=== PATIENT | male | born 1965 | race Caucasian/White ===

== ENCOUNTER 2020-03-22 06:36 | Observation (INO) | payer BC, SELFPAY ==
[2020-03-22] VITALS (12 sets, daily range): BP systolic 132–193; BP diastolic 81–121; PULSE 58–98; RESP 16–23; TEMP 36.6–37; O2SAT 95–99; BMI 41.6
--- NOTE | 2020-03-22 06:53 | ED_ITS ---
HPI - Neuro Symptoms/Deficit General: Chief Complaint: Weakness Stated Complaint: facial numbness and L hand numbness Time Seen by Provider: 03/22/20 06:52 Source: patient History of Present Illness: HPI Narrative: Patient is a pleasant 54-year-old male seen for left-sided paresthesias. He states that driving to work on Wednesday morning, 2 days ago, his left side of his face felt numb in his left arm and hand felt and he had severely diminished strength of the upper extremity. Coworkers noted that his face looked to be drooping on the left. Coworkers told him to go to the hospital, but he went home instead. He co ntacted his doctor's office yesterday, and the pharmacy benefit manager told him to go immediately to the emergency department. He went home instead. He states that he woke up this morning feeling much better, with increased strength in the left arm and increased mobility of the left side of the face, however he has residual numbness of the left hand and left side of the face. He decided to come to the emergency department because he felt a sudden onset of chest discomfort this morning, which she states felt like pressure and lasted roughly 5 minutes and extended up both the left and right side of his anterior neck. He denies evolution of neurologic symptoms today. He states that he is supposed to be on blood pressure medication, however he has not taken it for some time. He arrives with blood pressure of 193/121. He denies recent sickness, fever, cough, headache, visual disturbance, abdominal pain, nausea, vomiting, and states that he has no difficulty walking. Review of Systems General: Reports: 10 or more systems reviewed and unremarkable except in HPI and below [facility] ED PFSH: Medical History (Updated 03/22/20 @ 14:05 by Quinton Felix MD) Diabetes mellitus Hypertension Obesity Surgical History (Updated 03/22/20 @ 13:59 by Quinton Felix MD) History of cholecystectomy History of knee surgery Family History (Updated 03/22/20 @ 13:59 by Quinton Felix MD) Other CAD (coronary artery disease) Social History Smoking and tobacco status: never smoked Alcohol intake: current Alcohol intake frequency: holidays/special occasions only Alcohol type: beer NIH stroke score NIHSS: Level Of Consciousness - 1a: 0 Level Of Consciousness Questions - 1b: Both Correct Level Of Consciousness Commands - 1c: Both Correct Best Gaze - 2: Normal Visual Smiley - 3: No Visual Loss Facial Palsy - 4: Minor Paralysis Motor Arm Right - 5: No Drift Motor Arm Left - 5: Drift Motor Leg Right - 6: No Drift Motor Leg Left - 6: No Drift Limb Ataxia - 7: Absent Sensory - 8: Mild To Moderate Loss Best Language - 9: No Aphasia Dysarthia - 10: Normal Extinction And Inattention - 11: 0 Score: Total Score: 3 Physical Exam Const: COMMON NORMALS: no acute distress, patient oriented x3 and alert ORIENTATION/CONSCIOUSNESS: Yes oriented to person, Yes oriented to place and Yes oriented to time HENMT: COMMON NORMALS: normocephalic and atraumatic HEAD & SCALP: normocephalic and atraumatic Eye: COMMON NORMALS: Equal, round and reactive pupils present, EOMs intact bilaterally and no scleral icterus PUPIL: Yes Equal, round and reactive p upils present Neck/C-Spine: COMMON NORMALS: no meningeal signs Resp: COMMON NORMALS: normal respiratory effort and No retractions Cardio: COMMON NORMALS: regular rate, regular rhythm and No murmurs present (Cardio) RATE: regular rate RHYTHM: regular rhythm GI: COMMON NORMALS: Normal to inspection, nondistended, normoactive bowel sounds present, Soft to palpation and non-tender PALPATION: Yes Soft to palpation Neuro: COMMON NORMALS: patient oriented x3 SENSORIUM/ORIENTATION: Yes alert, Yes oriented to person, Yes oriented to place and Yes oriented to time MENINGEAL SIGNS: Yes no meningeal signs CRANIAL NERVES: Yes CN normal except as noted OTHER: NIH of 3, for facial numbness, facial droop, mild left arm pronator drift, altered sensation of the left arm and leg. Skin: COMMON NORMALS: no rashes or lesions noted GENERAL SKIN EXAM: no rashes or lesions noted Course Vital Signs: Vital signs: Vital Signs Temperature 98.6 F 03/22/20 17:00 Pulse Rate 65 03/22/20 17:00 Respiratory Rate 18 03/22/20 17:00 Blood Pressure 143/89 03/22/20 17:00 Pulse Oximetry 97 03/22/20 16:00 MDM - Neuro Symptoms/Deficit MDM Narrative: Medical decision making narrative: Patient seen for symptoms consistent with subacute stroke. NIH is 3. CT of the head shows no acute process. His left-sided symptoms seem to be improving with time. Blood pressure was well controlled with a single dose of IV labetalol. He does not appear to be compliant with his home medications. He will be admitted to the hospital service for further observation and care. Lab Data: Labs: Lab Results 03/22/20 03/22/20 03/22/20 Range/Units 07:10 07:10 07:10 WBC 6.6 (4.0-10.0) 10^3/ uL RBC 6.07 H (4.1-5.3) 10^6/u L Hgb 15.5 (11.7-16.6) g/dL Hct 48.2 (42.0-52.0) % MCV 79.4 L (80-94) fL MCH 25.5 L (28.0-34.0) pg MCHC 32.2 (30.0-36.0) g/dL RDW 13.2 (12.1-15.1) % Plt Count 222 (130-400) 10^3/c mm MPV 10.5 H (7.4-10.4) fL Neut % (Auto) 70.2 % Lymph % (Auto) 21.0 % Morgan % (Auto) 6.2 % Eos % (Auto) 1.4 % Baso % (Auto) 0.9 % Neut # (Auto) 4.61 (1.8-7.7) 10^3/u L Lymph # (Auto) 1.4 (0.8-4.8) 10^3/u L Morgan # (Auto) 0.4 (0.2-0.9) 10^3/u L Eos # (Auto) 0.1 (0.0-0.8) 10^3/u L Baso # (Auto) 0.1 (0.0-0.1) 10^3/u L Nucleated RBC % (a uto) 0 % Nucleated RBCs # 0.0 /100WBC PT 13.70 (12.1-14.9) SECO NDS INR 1.02 (0.8-1.2) APTT 22.9 L (23.9-36.7) SECO NDS Sodium 133 L (136-145) mmol/L Potassium 4.1 (3.5-5.1) mmol/L Chloride 100 (98-107) mmol/L Carbon Dioxide 21 L (22-29) mmol/L Anion Gap 16.1 (5-19) BUN 13 (6-20) mg/dL Creatinine 0.7 (0.7-1.2) mg/dL GFR Calculation 118.4 (90-130) mL/min Glucose 316 H (65-115) mg/dL POC Glucose (70-110) mg/dL Estimat Average Gl ucose Hemoglobin A1c (4.0-6.0) % Calculated Osmolal ity 288 (285-295) mOsm/k g Calcium 9.0 (8.5-10.5) mg/dL Total Bilirubin 0.3 (0.15-1.2) mg/dL AST 12 (0-40) U/L ALT 14 (0-41) U/L Alkaline Phosphata se 117 (40-130) IU/L Troponin T Baselin e (0-15) ng/L Total Protein 6.6 (6.6-8.7) g/dL Albumin 4.1 (3.5-5.2) g/dL Globulin 2.5 (1.3-4.6) g/dL TSH (0.27-4.20) uIU/ mL 03/22/20 03/22/20 03/22/20 Range/Units 07:10 07:10 07:10 WBC (4.0-10.0) 10^3/ uL RBC (4.1-5.3) 10^6/u L Hgb (11.7-16.6) g/dL Hct (42.0-52.0) % MCV (80-94) fL MCH (28.0-34.0) pg MCHC (30.0-36.0) g/dL RDW (12.1-15.1) % Plt Count (130-400) 10^3/c mm MPV (7.4-10.4) fL Neut % (Auto) % Lymph % (Auto) % Morgan % (Auto) % Eos % (Auto) % Baso % (Auto) % Neut # (Auto) (1.8-7.7) 10^3/u L Lymph # (Auto) (0.8-4.8) 10^3/u L Morgan # (Auto) (0.2-0.9) 10^3/u L Eos # (Auto) (0.0-0.8) 10^3/u L Baso # (Auto) (0.0-0.1) 10^3/u L Nucleated RBC % (a uto) % Nucleated RBCs # /100WBC PT (12.1-14.9) SECO NDS INR (0.8-1.2) APTT (23.9-36.7) SECO NDS Sodium (136-145) mmol/L Potassium (3.5-5.1) mmol/L Chloride (98-107) mmol/L Carbon Dioxide (22-29) mmol/L Anion Gap (5-19) BUN (6-20) mg/dL Creatinine (0.7-1.2) mg/dL GFR Calculation (90-130) mL/min Glucose (65-115) mg/dL POC Glucose (70-110) mg/dL Estimat Average Gl ucose 283 Hemoglobin A1c 11.5 H (4.0-6.0) % Calculated Osmolal ity (285-295) mOsm/k g Calcium (8.5-10.5) mg/dL Total Bilirubin (0.15-1.2) mg/dL AST (0-40) U/L ALT (0-41) U/L Alkaline Phosphata se (40-130) IU/L Troponin T Baselin e 6 (0-15) ng/L Total Protein (6.6-8.7) g/dL Albumin (3.5-5.2) g/dL Globulin (1.3-4.6) g/dL TSH 0.91 (0.27-4.20) uIU/ mL 03/22/20 Range/Units 07:25 WBC (4.0-10.0) 10^3/ uL RBC (4.1-5.3) 10^6/u L Hgb (11.7-16.6) g/dL Hct (42.0-52.0) % MCV (80-94) fL MCH (28.0-34.0) pg MCHC (30.0-36.0) g/dL RDW (12.1-15.1) % Plt Count (130-400) 10^3/c mm MPV (7.4-10.4) fL Neut % (Auto) % Lymph % (Auto) % Morgan % (Auto) % Eos % (Auto) % Baso % (Auto) % Neut # (Auto) (1.8-7.7) 10^3/u L Lymph # (Auto) (0.8-4.8) 10^3/u L Morgan # (Auto) (0.2-0.9) 10^3/u L Eos # (Auto) (0.0-0.8) 10^3/u L Baso # (Auto) (0.0-0.1) 10^3/u L Nucleated RBC % (a uto) % Nucleated RBCs # /100WBC PT (12.1-14.9) SECO NDS INR (0.8-1.2) APTT (23.9-36.7) SECO NDS Sodium (136-145) mmol/L Potassium (3.5-5.1) mmol/L Chloride (98-107) mmol/L Carbon Dioxide (22-29) mmol/L Anion Gap (5-19) BUN (6-20) mg/dL Creatinine (0.7-1.2) mg/dL GFR Calculation (90-130) mL/min Glucose (65-115) mg/dL POC Glucose 302 (70-110) mg/dL Estimat Average Gl ucose Hemoglobin A1c (4.0-6.0) % Calculated Osmolal ity (285-295) mOsm/k g Calcium (8.5-10.5) mg/dL Total Bilirubin (0.15-1.2) mg/dL AST (0-40) U/L ALT (0-41) U/L Alkaline Phosphata se (40-130) IU/L Troponin T Baselin e (0-15) ng/L Total Protein (6.6-8.7) g/dL Albumin (3.5-5.2) g/dL Globulin (1.3-4.6) g/dL TSH (0.27-4.20) uIU/ mL EKG Data^: EKG 1: EKG interpretation date: 03/22/20 EKG interpretation time: 06:48 Interpretation: Normal sinus rhythm, rate of 84, no ST elevation or depression, intervals within normal limits. Mild motion artifact secondary to patient motion. Discharge Plan Discharge Patient Disposition: Admitted As Inpatient Admit Provider: Quinton Felix Coding Level of Care Code ED Manager Data Warehousing for Chg Fwd Exam Comprehensive
--- NOTE | 2020-03-22 07:06 | XR_ITS ---
WS: [id number] PORTABLE CHEST HISTORY: chest pain COMPARISON: None available. Lungs are clear and well expanded. No pleural effusion or pneumothorax. Cardiac size: Normal. Mediastinum/Aorta: Normal mediastinum. No osseous abnormality seen. XR/XR chest 1V portable [id number] IMPRESSION: Unremarkable portable chest.
--- NOTE | 2020-03-22 07:06 | CT_ITS ---
WS: [id number] CT angio headneck* [id number] REASON FOR EXAM: subacute stroke symptoms TECHNIQUE: Coronal and sagittal 2-D and MIP reformations. After the intravenous administration of con trast multiple thin section axial images were obtained in the arterial phase from the aortic arch to the top of the skull. Coronal and sagittal MIP reconstructions were obtained to demonstrate the aorti c arch and great vessels and the carotid and vertebral cervical and intracranial blood flow. IV CONTRAST ADMINISTERED: 95 mL of Omnipaque 350. TOTAL EXAM DLP: 2636.[address] scans at [facility] use at least one of these dose optimization techniques: automat ed exposure control; mA and/or kV adjustment per patient size (includes targeted exams where dose is matched to clinical indication); or iterative reconstruction. FINDINGS: ARCH AND GREAT VESSELS: No significant stenosis in the origin of the great vessels from the aortic arch. Origins of the right common carotid and vertebral arteries are unremarkable. The cervical portions of the common carotid arteries are normal. There is minimal plaque in the origi n of the internal carotid arteries. Internal carotid arteries are normal to the base of the skull. The cervical vertebral arteries are normal to the base of the skull. The skull base internal carotid and vertebral arteries are normal. INTRACRANIAL circulation: The terminus is normal bilaterally. The middle cerebral arterial circulations are normal. The anterior cerebral arterial circulations are normal. The basilar artery and basilar artery tip are normal. The superior cerebellar and the posterior cereb ral artery circulations are normal. CT/CT angio headneck* [id number] IMPRESSION: No significant vascular abnormality: No stenosis, clot, aneurysm, or arterial venous malformation is identified. Minimal calcified plaque in the origins of the internal carotid arteries.
--- NOTE | 2020-03-22 07:06 | CT_ITS ---
WS: [id number] CT head wo con* [id number] REASON FOR EXAM: Symptoms of Acute Stroke IV CONTRAST ADMINISTERED: Noncontrast TOTAL EXAM DLP: 898.[address] scans at [facility] use at least one of these dose optimization techniques: automat ed exposure control; mA and/or kV adjustment per patient size (includes targeted exams where dose is matched to clinical indication); or iterative reconstruction. FINDINGS: There is no midline shift or other significant mass effect. There are no findings of intracranial hemorrhage and no extra-axial fluid collection. There is no focal brain parenchymal abnormality, specifically no findings of acute ischemia. No significant atrophy. CT/CT head wo con* [id number] IMPRESSION: No acute intracranial abnormality.
--- NOTE | 2020-03-22 07:06 | ECG_ITS ---
[facility] Test Date: 2020-03-22 Pat Name: Carlos Ibanez Department: Room: Gender: Male Radio Journalist: : 1965 Requested By: Jaleel Tran Order Number: [id number] Jairo MD: Arnel Perez M.D. Measurements Intervals [place] Rate: 84 P: 50 [place]: 148 QRS: 35 QRSD: 93 T: 26 QT: 344 QTc: 409 Interpretive Statements SINUS RHYTHM NONSPECIFIC T-WAVE ABNORMALITY INTERPRETATION BASED ON A DEFAULT AGE OF 40 YEARS No previous ECG available for comparison Electronically Signed On 03-22-2020 18:33:39 UTILITIES GROUND WORKER by Arnel Perez M.D. [id number]
[2020-03-22 07:35] LABS: Glucose Point of Care 302 mg/dL (70-110)
[2020-03-22] MEDS: labetalol 5 mg/mL SDV 20mL 10 MG IV (07:38)
[2020-03-22 07:39] LABS: Basophils # 0.1 10^3/uL (0.0-0.1); Basophils % 0.9 %; Eosinophils # 0.1 10^3/uL (0.0-0.8); Eosinophils % 1.4 %; Hematocrit 48.2 % (42.0-52.0); Hemoglobin 15.5 g/dL (11.7-16.6); Lymphocytes # 1.4 10^3/uL (0.8-4.8); Mean Corpuscular HGB Conc 32.2 g/dL (30.0-36.0); Mean Corpuscular Hemoglobin 25.5 pg (28.0-34.0); Mean Corpuscular Volume 79.4 fL (80-94); Mean Platelet Volume 10.5 fL (7.4-10.4); Monocytes # 0.4 10^3/uL (0.2-0.9); Monocytes % 6.2 %; Neutrophils # 4.61 10^3/uL (1.8-7.7); Neutrophils % 70.2 %; Nucleated Red Blood Cells % 0 %; Platelet Count 222 10^3/cmm (130-400); Red Blood Count 6.07 10^6/uL (4.1-5.3); Red Cell Distribution Width 13.2 % (12.1-15.1); White Blood Count 6.6 10^3/uL (4.0-10.0)
[2020-03-22 07:53] LABS: INR 1.02 (0.8-1.2)
[2020-03-22 07:54] LABS: Partial Thromboplastin Time 22.9 SECONDS (23.9-36.7)
[2020-03-22 07:58] LABS: Alanine Aminotransferase 14 U/L (0-41); Albumin Level 4.1 g/dL (3.5-5.2); Alkaline Phosphatase 117 IU/L (40-130); Anion Gap 16.1 (5-19); Aspartate Amino Transferase 12 U/L (0-40); Blood Urea Nitrogen 13 mg/dL (6-20); Carbon Dioxide 21 mmol/L (22-29); Chloride 100 mmol/L (98-107); Globulin 2.5 g/dL (1.3-4.6); Glomerular Filtration Rate 118.4 mL/min (90-130); Glucose 316 mg/dL (65-115); Osmolality Calculated 288 mOsm/kg (285-295); Potassium 4.1 mmol/L (3.5-5.1); Sodium 133 mmol/L (136-145); Total Bilirubin 0.3 mg/dL (0.15-1.2); Total Protein 6.6 g/dL (6.6-8.7)
[2020-03-22] MEDS: iohexol 350 mg/mL 100 mL Btl IV (08:03)
[2020-03-22] MEDS: atorvastatin 40 mg Tablet PO (09:21)
[2020-03-22 09:47] LABS: Troponin(5th) Baseline 6 ng/L (0-15)
[2020-03-22 09:49] LABS: Troponin 5 2HR Delta 0 ABS# (0-10)
--- NOTE | 2020-03-22 10:36 | ECG_ITS ---
[facility] Test Date: 2020-03-22 Pat Name: Carlos Ibanez Department: Room: 260 Gender: Male Insurance Underwriting Assistant: : 1965 Requested By: Jaleel Tran Order Number: [id number] Jairo MD: Arnel Perez M.D. Measurements Intervals [place] Rate: 65 P: 23 [place]: 153 QRS: 34 QRSD: 101 T: 35 QT: 390 QTc: 408 Interpretive Statements SINUS RHYTHM NONSPECIFIC T-WAVE ABNORMALITY Compared to ECG 03/22/2020 06:47:53 No significant changes Electronically Signed On 03-22-2020 18:40:03 SALT GRINDER by Arnel Perez M.D. [id number] f
--- NOTE | 2020-03-22 11:17 | PM.HP ---
Providers/Chief Complaint Admitting Physician: Quinton Felix MD Primary Care Provider: Steffen Cabrera MD Chief Complaint: facial numbness and L hand numbness History of Present Illness Carlos Ibanez is a 54 year old male who presents with history of some facial numbness, and left arm numbness he noticed Wednesday around 11 PM. He reports the left hand, seem to get weaker after that, and he had difficulty steering with it. He reports it has been slowly improving, and just feels a little tight currently along with his face. He reports no slurred speech. Coworkers thought at the time when it was its worst he had some drooping of his left face. Today he had some upper chest radiating to his neck discomfort that was dull in nature while driving, and felt lightheaded around 5 AM. This lasted only a few minutes. No nausea or vomiting. He reports he has had chest discomfort on and off in the past for the last 5 to 6 years. He denies any reliable exertional chest discomfort. He reports no prior history of stroke. He has had no headache, nausea, vomiting. He has had no blood in his stools, or black or tarry stools. He does take ibuprofen, 2 to 6/day. He denies any documented prior history of stroke, or heart disease. No history of Covid, or exposure to it. No significant cough. NIH score was 3 in the emergency department. Patient reports he has diabetes and hypertension but stopped all medications related to this quite some time ago. Review of Systems General: Reports: 10 or more systems reviewed and unremarkable except in HPI and below Const: Denies: fever(s) Eyes: Denies: change in vision ENMT: Denies: throat pain Card: Reports: chest pain; Denies: edema Resp: Denies: dyspnea GI: Denies: abdominal pain, nausea or vomiting : Denies: flank pain Musc: Reports: neck pain Skin/Breast: Denies: rash Neuro: Reports: numbness in extremities and weakness in extremities; Denies: headache(s) Psych: Denies: anxiety Endo: Denies: polyuria Cristhian/Lymph: Denies: easy bruising All/Imm: Denies: urticaria Medications/Allergies Home Medications Medication Instructions Recorded Confirmed Last Taken Type No Known Home Medications 03/22/20 03/22/20 Unknown History Allergies Allergy/AdvReac Type Severity Reaction Status Date / Time No Known Allergies Allergy Unverified 03/22/20 09:07 PFSH Acute PFSH: Medical History (Updated 03/22/20 @ 14:05 by Quinton Felix MD) Diabetes mellitus Hypertension Obesity Surgical History (Updated 03/22/20 @ 13:59 by Quinton Felix MD) History of cholecystectomy History of knee surgery Family History (Updated 03/22/20 @ 13:59 by Quinton Felix MD) Other CAD (coronary artery disease) Social History Smoking and tobacco status: never smoked Alcohol intake: current Alcohol intake frequency: holidays/special occasions only Alcohol type: beer Vitals/I&O/Wt Last Vital Signs Temp 98.1 F 03/22/20 06:42 Pulse 88 03/22/20 10:01 Resp 23 H 03/22/20 10:01 BP 143/93 03/22/20 10:01 Pulse Ox 98 03/22/20 10:01 Weight last 48 hrs Weight 127.913 kg Physical Exam Narrative: EXAM NARRATIVE: General exam is a white male, in no apparent distress now denying any chest or neck discomfort. He reports it feels slightly tight in his left face and left arm. HEENT: Pupils equally round. Oropharynx clear. Neck is supple no lymphadenopathy or thyromegaly Cardiovascular regular rate and rhythm without murmur, no S3 or S4 Lungs clear no wheezing or crackles Abdomen is soft obese nontender with positive bowel sounds. No obvious organomegaly. Scarring is noted around his right upper quadrant was deferred Extremities no cyanosis clubbing or edema, cap refill brisk Skin no rash Neuro question mild nasolabial flattening left. Slight decreased strength left upper extremity. No drift. No other abnormalities noted. Data : 03/22/20 07:10 03/22/20 07:10 Other data: LFTs are normal Troponin is 6 and 120-minute troponin is 6 CTA head and neck demonstrate no flow-limiting stenosis, minimal plaque origin carotid arteries Head CT noncontrast negative Chest x-ray visualized by me no infiltrate. EKG demonstrates normal sinus rhythm, some baseline artifact, normal axis, nonspecific ST-T wave flattening V5 and 6 A&P Assessment and plan (1) CVA (cerebral vascular accident): Observation Plavix, aspirin Initiate statin, high intensity Check lipid profile tomorrow At this point does not appear to need physical therapy Check echocardiogram MRI of head tomorrow if able without contrast Status: Acute (2) Chest pain: Somewhat atypical chest pain Check echocardiogram Troponin and EKG series Considering risk factors may warrant outpatient nuclear stress testing by Babatunde boyd Status: Acute (3) Diabetes mellitus: Check hemoglobin A1c Initiate sliding scale insulin Will need recommendations for treatment of medication for control on discharge Check TSH as well Status: Inactive (4) Hypertension: Permissive hypertension currently and if no worsening of symptoms start antihypertensives tomorrow as symptoms started March 20 Status: Inactive Additional A&P Information Obesity Full code DVT prophylaxis with Lovenox Attestations Medical Necessity Statement*: Will need less than 2 midnight stay for evaluation of stroke, chest discomfort Time Spent in Patient Care: Greater than 35 minutes Coding Level of Care Code Acute Truck Car And Bus Cleaner for g Fwd Diagnoses CVA (cerebral vascular accident) I63.9 Chest pain R07.9 Diabetes mellitus E11.9 Hypertension I10
--- NOTE | 2020-03-22 11:19 | USCV_ITS ---
Carlos Ibanez Age: 54 Gender: M : 1965 Exam Date: 03/22/2020 14:18 Ordering Phys: Quinton Felix MD Technologist: Lucero Coombs Exam Location: [facility] [place] Indication: ARM NUMBNESS BP: 143 / 87 HR: 72 Rhythm: Sinus Technical Quality: Very technically difficult study MEASUREMENTS (Male / Female) Normal Values 2D ECHO LV Diastolic Diameter PLAX 3.6 cm 4.2 - 5.9 / 3.9 - 5.3 cm LV Systolic Diameter PLAX 3.0 cm IVS Diastolic Thickness 1.5 cm 0.6 - 1.0 / 0.6 - 0.9 cm IVS Systolic Thickness 1.8 cm LVPW Diastolic Thickness 1.3 cm 0.6 - 1.0 / 0.6 - 0.9 cm LVPW Systolic Thickness 1.6 cm LVOT Diameter 2.0 cm LV Ejection Fraction 2D Teich 18.8 % LV Ejection Fraction MOD 2C 73.0 % LV Ejection Fraction 2C AL 74.7 % LA Diameter 4.0 cm LA Width 3.9 cm LA Height 5.0 cm RA Width 3.7 cm RA Height 3.5 cm Aorta at Sinotubular Diameter 3.2 cm M-MODE LV Diastolic Diameter MM 3.6 cm 4.2 - 5.9 / 3.9 - 5.3 cm LV Systolic Diameter MM 2.8 cm LV Ejection Fraction MM Teich 48.2 % IVS Diastolic Thickness MM 1.3 cm 0.6 - 1.0 / 0.6 - 0.9 cm IVS Systolic Thickness MM 1.9 cm LVPW Diastolic Thickness MM 1.8 cm 0.6 - 1.0 / 0.6 - 0.9 cm LVPW Systolic Thickness MM 1.7 cm RV Diastolic Diameter MM 2.2 cm Aortic Annulus Diameter 3.6 cm LA Ao Ratio MM 1.1 MV E Point Septal Separation 0.4 cm DOPPLER AV Peak Velocity 156.0 cm/s LVOT Peak Velocity 109.0 cm/s AV Area Cont Eq vti 2.7 cm squared AV Area Cont Eq pk 2.3 cm squared MV Area PHT 6.5 cm squared Mitral E to A Ratio 1.0 MV E' Velocity 51.5 cm/s Mitral E to MV E' Ratio 10.6 Mitral E to LV E' Lateral Ratio 11.3 Mitral E to LV E' Septal Ratio 9.9 TR Peak Velocity 115.7 cm/s TR Peak Gradient 5.4 mmHg TR Mean Velocity 74.9 cm/s TR Mean Gradient 2.7 mmHg TR Velocity Time Integral 22.8 cm TV Peak E Velocity 56.0 cm/s Right Atrial Pressure 3.0 mmHg Pulmonary Artery Systolic Pressu 8.4 mmHg PV Peak Velocity 105.0 cm/s RV Acceleration Time 0.1 s RV Ejection Time 0.3 s RV AcT/ET 0.4 FINDINGS Left Ventricle Normal left ventricular size, systolic function and wall thickness, with no diagnostic regional wall motion abnormalities. Left ventricular ejection fraction is estimated at 65 %. Normal diastolic function. Right Ventricle Normal right ventricular size and systolic function. Right ventricular systolic pressure 8.4 mmHg. Right Atrium Normal right atrial size. Left Atrium Normal left atrial size. Mitral Valve No mitral valve stenosis. No mitral valve regurgitation. Aortic Valve Aortic valve not well visualized. No aortic valve stenosis. No aortic valve stenosis. Tricuspid Valve Structurally normal tricuspid valve. No significant tricuspid valve regurgitation. Pulmonic Valve Pulmonic valve not well visualized. Pericardium No pericardial effusion. Aorta Normal-sized aortic root. Normal-sized inferior vena cava with normal respiratory variations. CONCLUSIONS 1. Normal left ventricular size, systolic function and wall thickness, with no diagnostic regional wall motion abnormalities. Left ventricular ejection fraction is estimated at 65 %. Normal diastolic function. 2. Normal right ventricular size and systolic function. 3. Normal pulmonary artery pressure. 4. No significant valvular abnormality. 5. No prior similar studies to compare. Cristina Reis MD (Electronically Signed) Final Date: 22 March 2020 17:56 S
--- NOTE | 2020-03-22 11:32 | PC.NURSE ---
Patient here from ER for admission, sitting up in chair, reports facial numbness to the left but resolving and slight numbness to left hand, roof designer are equal bilaterally, speech is clear, patient is alert and oriented.
[2020-03-22 12:04] LABS: Glucose Point of Care 234 mg/dL (70-110)
[2020-03-22] MEDS: aspirin 325 mg EC Tablet PO (12:49)
[2020-03-22] MEDS: enoxaparin 40 mg/0.4 mL Syringe SUBCUT (12:49)
--- NOTE | 2020-03-22 14:03 | MRR_ITS ---
PROCEDURE INFORMATION: Exam: MR Head Without Contrast Exam date and time: 03/22/2020 4:10 PM Age: 54 years old Clinical indication: Weakness, extremity and weakness, facial; Left; Additional info: Possible CVA, left sided weakness, numbness in face, arm, hand TECHNIQUE: Imaging protocol: MR of the head without contrast. COMPARISON: CT head wo con* [id number] 03/22/2020 7:33 AM FINDINGS: Brain: Normal. No acute infarct. No hemorrhage. No significant white matter disease. No edema. Diffusion-weighted scans show no evidence of stroke. Cerebral ventricles: Normal. No ventriculomegaly. Bones/joints: Unremarkable. Paranasal sinuses: There is mild scattered mucosal thickening in the paranasal sinuses. No acute sinusitis. Mastoid air cells: Normal as visualized. No mastoid effusion. Orbits: Unremarkable. Soft tissues: Unremarkable. MR/MR head wo con* [id number] IMPRESSION: No acute findings.
[2020-03-22 14:15] LABS: Troponin 5 6HR Delta 0 ng/L (0-12)
[2020-03-22 14:18] LABS: Lactic Sepsis W/Reflex 1.4 mmol/L (0.5-2.2)
[2020-03-22 14:46] LABS: Estmated Average Glucose 283; Hemoglobin A1C 11.5 % (4.0-6.0)
[2020-03-22 14:55] LABS: Thyroid Stimulating Hormone 0.91 uIU/mL (0.27-4.20)
[2020-03-22 17:11] LABS: Glucose Point of Care 233 mg/dL (70-110)
[2020-03-22 20:44] LABS: Glucose Point of Care 252 mg/dL (70-110)
[2020-03-23] VITALS: BP 126/83; PULSE 61; RESP 16; TEMP 36.7; O2SAT 97
[2020-03-23 04:00] VITALS: BP 137/91; PULSE 71; RESP 16; TEMP 36.8; O2SAT 96
[2020-03-23 06:29] LABS: Basophils # 0.1 10^3/uL (0.0-0.1); Basophils % 0.7 %; Eosinophils # 0.2 10^3/uL (0.0-0.8); Eosinophils % 2.2 %; Hematocrit 50.9 % (42.0-52.0); Lymphocytes % 27.2 %; Mean Corpuscular HGB Conc 31.4 g/dL (30.0-36.0); Mean Corpuscular Hemoglobin 25.9 pg (28.0-34.0); Mean Corpuscular Volume 82.5 fL (80-94); Mean Platelet Volume 11.1 fL (7.4-10.4); Monocytes # 0.5 10^3/uL (0.2-0.9); Monocytes % 6.9 %; Neutrophils # 4.62 10^3/uL (1.8-7.7); Neutrophils % 62.7 %; Nucleated Red Blood Cells % 0 %; Platelet Count 234 10^3/cmm (130-400); Red Blood Count 6.17 10^6/uL (4.1-5.3); Red Cell Distribution Width 13.6 % (12.1-15.1); White Blood Count 7.4 10^3/uL (4.0-10.0)
[2020-03-23 07:07] LABS: Glucose Point of Care 230 mg/dL (70-110)
[2020-03-23 07:21] LABS: Alanine Aminotransferase 14 U/L (0-41); Alkaline Phosphatase 107 IU/L (40-130); Anion Gap 14.9 (5-19); Aspartate Amino Transferase 13 U/L (0-40); Blood Urea Nitrogen 13 mg/dL (6-20); Calcium 9.2 mg/dL (8.5-10.5); Carbon Dioxide 25 mmol/L (22-29); Chloride 100 mmol/L (98-107); Globulin 2.7 g/dL (1.3-4.6); Glomerular Filtration Rate 101.5 mL/min (90-130); Glucose 280 mg/dL (65-115); Osmolality Calculated 292 mOsm/kg (285-295); Potassium 3.9 mmol/L (3.5-5.1); Sodium 136 mmol/L (136-145); Total Bilirubin 0.5 mg/dL (0.15-1.2); Total Protein 6.7 g/dL (6.6-8.7)
[2020-03-23 08:00] VITALS: BP 153/92; PULSE 71; RESP 18; TEMP 36.4; O2SAT 97
[2020-03-23] MEDS: aspirin 325 mg EC Tablet PO (09:51)
[2020-03-23] MEDS: clopidogrel 75 mg Tablet PO (09:51)
[2020-03-23 10:24] LABS: Chol HDL Ratio 4.77 mg/dL (1.0-5.00); Cholesterol 143 mg/dL (0-200); HDL Cholesterol 30 mg/dL (60-100); LDL Cholesterol Calculated 81 mg/dL (50-129); Triglycerides 162 mg/dL (0-150)
[2020-03-23 10:39] LABS: Glucose Point of Care 320 mg/dL (70-110)
--- NOTE | 2020-03-23 11:04 | PM.DCS ---
Discharge Providers Date of Admission: 03/22/20 08:56 Date of Discharge: March 23, 2020 Attending Provider at Admission: Quinton Felix MD Attending Provider at Discharge: Miguel A Lawler MD Primary Care Provider: Steffen Cabrera MD Diagnoses at Discharge Discharge Diagnosis (1) CVA (cerebral vascular accident): Status: Acute (2) Chest pain: Status: Acute (3) Diabetes mellitus: Status: Inactive (4) Hypertension: Status: Inactive Reason for Visit Reason for Visit: facial numbness and L hand numbness Hospital Course Hospital Course This is a 54-year-old male with past medical history of diabetes, hypertension, noncompliant with medications who presents to [facility] due to left facial numbness, left arm numbness, left drooping of the face and chest pain For his left-sided numbness, left arm numbness, left drooping of the face he was admitted to [facility] for acute CVA, NIH stroke scale was 3, symptoms were present for the last 3 days, out of TPA window HEAD CT There is no midline shift or other significant mass effect. There are no findings of intracranial hemorrhage and no extra-axial fluid collection. There is no focal brain parenchymal abnormality, specifically no findings of acute ischemia. No significant atrophy. CTA head and neck: ARCH AND GREAT VESSELS: No significant stenosis in the origin of the great vessels from the aortic arch. Origins of the right common carotid and vertebral arteries are unremarkable. The cervical portions of the common carotid arteries are normal. There is minimal plaque in the origin of the internal carotid arteries. Internal carotid arteries are normal to the base of the skull. The cervical vertebral arteries are normal to the base of the skull. The skull base internal carotid and vertebral arteries are normal. INTRACRANIAL circulation: The terminus is normal bilaterally. The middle cerebral arterial circulations are normal. The anterior cerebral arterial circulations are normal. The basilar artery and basilar artery tip are normal. The superior cerebellar and the posterior cerebral artery circulations are normal. BRAIN MRI: Brain: Normal. No acute infarct. No hemorrhage. No significant white matter disease. No edema. Diffusion-weighted scans show no evidence of stroke. Cerebral ventricles: Normal. No ventriculomegaly. Bones/joints: Unremarkable. Paranasal sinuses: There is mild scattered mucosal thickening in the paranasal sinuses. No acute sinusitis. Mastoid air cells: Normal as visualized. No mastoid effusion. Orbits: Unremarkable. Soft tissues: Unremarkable. Patient likely developed a CVA secondary to noncompliance hypertensive medications, type 2 diabetes medications. On day of discharge, patient was back to baseline, no significant focal neurologic deficits, no paresthesias, alert oriented x3, cranial nerves II to XII grossly intact. Patient will be discharged on dual antiplatelet therapy aspirin 81 mg, Plavix 75 mg for 3 weeks, Plavix should be discontinued after, continue aspirin 81 mg, atorvastatin 40 mg. Patient was advised that if he were to have recurrent strokelike symptoms come back to the emergency room Patient's hemoglobin A1c was 11.5, noncompliant with medication, discharged on Metformin 500 twice daily, with close follow-up with Dr. Cabrera For his hypertension, discharged on lisinopril 20 mg daily For his chest pain, no significant delta troponins, EKG no acute ST-T wave changes, echocardiogram 1. Normal left ventricular size, systolic function and wall thickness, with no diagnostic regional wall motion abnormalities. Left ventricular ejection fraction is estimated at 65 %. Normal diastolic function. 2. Normal right ventricular size and systolic function. 3. Normal pulmonary artery pressure. 4. No significant valvular abnormality. 5. No prior similar studies to compare. Patient was discharged on aspirin, statin, lisinopril. Patient was advised that if he were to have recurrent chest pain to go to the emergency room. Patient should follow-up with Dr. Cabrera as outpatient for consideration of stress testing. Discharge Data Data Completed and Pending: Completed Studies During Hospitalization Category Date Time Status CT angio headneck * [id number]/[id number] Stat Cat Scan 03/22/20 07:[address] head wo con* [id number] Stat Cat Scan 03/22/20 07:06 Completed XR chest 1V mya ble [id number] Stat Exams 03/22/20 07:06 Completed MR head wo con* [id number] Routine MRI 03/22/20 14:03 Completed CV echo complete* [id number] Routine Ultrasound 03/22/20 11:19 Completed Labs from last 24 hours 03/23/20 03/23/20 03/23/20 10:32 07:02 05:21 WBC RBC Hgb Hct MCV MCH MCHC RDW Plt Count MPV Neut % (Auto) Lymph % (Auto) Murray % (Auto) Eos % (Auto) Baso % (Auto) Neut # (Auto) Lymph # (Auto) Murray # (Auto) Eos # (Auto) Baso # (Auto) Nucleated RBC % (a uto) Nucleated RBCs # Sodium Potassium Chloride Carbon Dioxide Anion Gap BUN Creatinine GFR Calculation Glucose POC Glucose 320 H 230 H Estimat Average Gl ucose Hemoglobin A1c Calculated Osmolal ity Lactic Acid Calcium Total Bilirubin AST ALT Alkaline Phosphata se Troponin T Hi Sens 6Hr Troponin T Hi Sens 6Hr Delta Total Protein Albumin Globulin Triglycerides 162 H Cholesterol 143 LDL Cholesterol, C alc 81 HDL Cholesterol 30 L LDL/HDL Ratio 2.70 Cholesterol/HDL Ra paulino 4.77 TSH 03/23/20 03/23/20 03/22/20 05:21 05:21 20:35 WBC 7.4 RBC 6.17 H Hgb 16.0 Hct 50.9 MCV 82.5 MCH 25.9 L MCHC 31.4 RDW 13.6 Plt Count 234 MPV 11.1 H Neut % (Auto) 62.7 Lymph % (Auto) 27.2 Murray % (Auto) 6.9 Eos % (Auto) 2.2 Baso % (Auto) 0.7 Neut # (Auto) 4.62 Lymph # (Auto) 2.0 Murray # (Auto) 0.5 Eos # (Auto) 0.2 Baso # (Auto) 0.1 Nucleated RBC % (a uto) 0 Nucleated RBCs # 0.0 Sodium 136 Potassium 3.9 Chloride 100 Carbon Dioxide 25 Anion Gap 14.9 BUN 13 Creatinine 0.8 GFR Calculation 101.5 Glucose 280 H POC Glucose 252 H Estimat Average Gl ucose Hemoglobin A1c Calculated Osmolal ity 292 Lactic Acid Calcium 9.2 Total Bilirubin 0.5 AST 13 ALT 14 Alkaline Phosphata se 107 Troponin T Hi Sens 6Hr Troponin T Hi Sens 6Hr Delta Total Protein 6.7 Albumin 4.0 Globulin 2.7 Triglycerides Cholesterol LDL Cholesterol, C alc HDL Cholesterol LDL/HDL Ratio Cholesterol/HDL Ra paulino TSH 03/22/20 03/22/20 03/22/20 16:58 13:43 13:43 WBC RBC Hgb Hct MCV MCH MCHC RDW Plt Count MPV Neut % (Auto) Lymph % (Auto) Murray % (Auto) Eos % (Auto) Baso % (Auto) Neut # (Auto) Lymph # (Auto) Murray # (Auto) Eos # (Auto) Baso # (Auto) Nucleated RBC % (a uto) Nucleated RBCs # Sodium Potassium Chloride Carbon Dioxide Anion Gap BUN Creatinine GFR Calculation Glucose POC Glucose 233 H Estimat Average Gl ucose Hemoglobin A1c Calculated Osmolal ity Lactic Acid 1.4 Calcium Total Bilirubin AST ALT Alkaline Phosphata se Troponin T Hi Sens 6Hr 6.00 Troponin T Hi Sens 6Hr Delta 0 Total Protein Albumin Globulin Triglycerides Cholesterol LDL Cholesterol, C alc HDL Cholesterol LDL/HDL Ratio Cholesterol/HDL Ra paulino TSH 03/22/20 03/22/20 03/22/20 12:02 07:10 07:10 WBC RBC Hgb Hct MCV MCH MCHC RDW Plt Count MPV Neut % (Auto) Lymph % (Auto) Murray % (Auto) Eos % (Auto) Baso % (Auto) Neut # (Auto) Lymph # (Auto) Murray # (Auto) Eos # (Auto) Baso # (Auto) Nucleated RBC % (a uto) Nucleated RBCs # Sodium Potassium Chloride Carbon Dioxide Anion Gap BUN Creatinine GFR Calculation Glucose POC Glucose 234 H Estimat Average Gl ucose 283 Hemoglobin A1c 11.5 H Calculated Osmolal ity Lactic Acid Calcium Total Bilirubin AST ALT Alkaline Phosphata se Troponin T Hi Sens 6Hr Troponin T Hi Sens 6Hr Delta Total Protein Albumin Globulin Triglycerides Cholesterol LDL Cholesterol, C alc HDL Cholesterol LDL/HDL Ratio Cholesterol/HDL Ra paulino TSH 0.91 Vitals: Last Vital Signs Temp 97.6 F 03/23/20 08:00 Pulse 71 03/23/20 08:00 Resp 18 03/23/20 08:00 BP 153/92 03/23/20 08:00 Pulse Ox 97 03/23/20 08:00 Discharge Plan Discharge Patient Disposition: Home Condition: Stable Prescriptions: New atorvastatin 40 mg Tablet 40 mg PO BEDTIME 30 Days Qty: 30 RF: 0 clopidogrel 75 mg Tablet 75 mg PO DAILY 21 Days Qty: 21 RF: 0 aspirin 81 mg tablet,delayed release (DR/EC) 81 mg PO DAILY 30 Days Qty: 30 RF: 0 metformin 500 mg tablet 500 mg PO BID 30 Days Qty: 60 RF: 0 lisinopril 20 mg tablet 20 mg PO DAILY 30 Days Qty: 30 RF: 0 No Action No Known Home Medications RF: 0 Discharge Orders: Discharge Order (Routine); Ordered 03/23/20 Ordered By: Miguel A Lawler Referrals: Steffen Cabrera MD [Primary Care Provider] - 1 week ([facility] will call you on Wednesday and set up an appointment to see Dr. Cabrera in the next week. ) Discharge Diet: Cardiac Discharge Activity: Resume usual activity Patient Instructions: Chest Pain (GEN), Ischemic Stroke (DC) Discharge Attestations Time Spent in Discharge Care*: greater than 30 min Quality Metrics Clinical Quality Measures During this hospital stay, did patient experience: Stroke Contraindication to Antithrombotic: Antithrombotic prescribed Contraindication to Anticoagulation: Overlap treatment not indicated Contraindication to Statin: Statin prescribed Coding Level of Care Code Acute Training Officer for Chg Fwd Diagnoses CVA (cerebral vascular accident) I63.9 Chest pain R07.9 Diabetes mellitus E11.9 Hypertension I10
[2020-03-23 11:34] VITALS: BP 166/101; PULSE 75; RESP 18; TEMP 36.7; O2SAT 99
[2020-03-23 11:39] VITALS: BP 166/101; PULSE 75; RESP 18; TEMP 36.7; O2SAT 99
== END 2020-03-23 11:55 | disposition home or self-care (01) ==
LOC: ER 06:52 → MEDSURG 09:17
PROVIDERS: Admitting Provider Internal Medicine; Emergency Provider Student in an Organized Health Care Education/Training Program; PCP Family Medicine; Visit Provider Family Medicine
DX: I63.9 Cerebral infarction, unspecified (principal); R29.703 NIHSS score 3; R07.9 Chest pain, unspecified; E11.9 Type 2 diabetes mellitus without complications; I10 Essential (primary) hypertension; E66.9 Obesity, unspecified; Z68.41 Body mass index [BMI] 40.0-44.9, adult; Z82.49 Family history of ischemic heart disease and other diseases of the circulatory system; Z79.02 Long term (current) use of antithrombotics/antiplatelets; Z79.82 Long term (current) use of aspirin; Z79.4 Long term (current) use of insulin
CPT/HCPCS: 12345; 36415; 36416; 70450; 70496; 70498; 70551; 71045; 80053; 80061; 82962; 83036; 83605; 84443; 84484; 85025; 85610; 85730; 93005; 93306; 96372; 96374; 99283; 99285; G0378; J1650; J1815; J3490; Q9967